=== PATIENT | male | born 1965 | race Caucasian/White ===

== ENCOUNTER 2022-09-07 22:00 | Emergency (ER) | payer OTHER, SELFPAY ==
--- NOTE | ~2022-09-07 | XR_ITS ---
EXAMINATION: XR CHEST CLINICAL INFORMATION: Chest pain COMPARISON: None available. TECHNIQUE: 2 views of the chest were obtained. FINDINGS: There is elevation of the anterior right hemidiaphragm favoring eventration. No focal consolidation is seen bilaterally. No evidence of pneumothorax, pleural effusion, or pulmonary edema. The cardiomediastinal contour is unremarkable. No acute osseous findings are seen. XR/XR chest 2V IMPRESSION: No acute cardiopulmonary findings. Eventration of the right hemidiaphragm.
--- NOTE | ~2022-09-07 | CT_ITS ---
EXAMINATION: CT head/brain wo IV con CLINICAL INFORMATION: Reason for Exam fall with head strike, on thinners COMPARISON: None. TECHNIQUE: Contiguous axial imaging was performed from the skull base to vertex without intravenous contrast. Sagittal and coronal reformatted images were obtained. This CT examination was performed using dose optimization techniques as appropriate, variously including the following: * Automated exposure control * Adjustment of mA and/or kV according to patient size (this includes techniques or standardized protocols for targeted exams where dose is matched to indication/reason for exam; i.e. extremities or head) Use of iterative reconstruction technique DLP: 605 mGy-cm FINDINGS: No acute osseous or soft tissue abnormality. The mastoid air cells and visualized portions of the paranasal sinuses are well aerated. There is no evidence of acute intracranial hemorrhage or territorial infarction. No abnormal mass effect or midline shift is seen. Weeks to white matter differentiation is well preserved. No extra-axial fluid collections are identified. No hydrocephalus. No significant volume loss. There is no abnormal attenuation within the brain parenchyma. CT/CT head/brain wo IV con IMPRESSION: No acute intracranial abnormality including hemorrhage, mass effect, hydrocephalus, or acute territorial edematous infarction.
[2022-09-07 22:11] VITALS: BP 149/86; PULSE 98; RESP 18; TEMP 2.7; TEMP 36.9; O2SAT 97; BMI 28.4
--- NOTE | 2022-09-07 22:42 | ED.GENADULT ---
[facility] - General Adult General Chief complaint: Headache Stated complaint: migraine Time Seen by Provider: 09/07/22 22:42 Source: patient and toddler lead teacher Mode of arrival: ambulatory Limitations: language barrier History of Present Illness HPI narrative: Patient is a 57-year-old male with no past medical history presenting to the emergency department with posterior headache for the past 7 months. States that headache has been constant, rates currently at 8/10. Denies headache worst at onset, denies worse headache of life. Denies dizziness or syncope. Denies history of migraines. Reports he saw his PCP regarding his headache and no imaging was ordered, no medications prescribed. States he also has mild blurred vision at times. Patient has not taken any [id number] medications for his symptoms. Denies any neck or back pain. Denies any falls or other injuries. He also reports 5/10 chest pain which he reports is intermittent also for the past several months. Denies any shortness of breath or cough. Denies any fevers. Denies abdominal pain, nausea, vomiting, diarrhea, constipation. MD complaint: Headache, chest pain Onset (ago): month(s) Location: head and chest Radiation: non-radiation Severity: severe Quality: aching Pain Consistency: constant (Headache) and intermittent (Chest pain) Relieving factors: none Exacerbating factors: none Associated symptoms: other (Occasional blurred vision) Treatments prior to arrival: none Related Data Allergies Allergy/AdvReac Type Severity Reaction Status Date / Time No Known Allergies Allergy Verified 09/07/22 22:16 Review of Systems Review of Systems: As per HPI. Yes all other systems are reviewed and are negative Constitutional: Constitutional: Reports as per HPI [facility] Social History Social History Alcohol intake: never Smoked in Last 30 Days: No Use of substances other than those prescribed or required for medical reasons: No Advance Directives: No Advance Directives Information Provided: No Physical Exam ED Vital Signs: Vital Signs - 24 hr 09/07/22 22:11 Temperature 36.9 F L Pulse Rate 98 Respiratory Rate 18 Blood Pressure 149/86 H Pulse Oximetry 97 Oxygen Delivery Method Room Air BMI result Body Mass Index 28.4 Vital signs have been reviewed and appear to be correct. Blood pressure elevated. Heart rate normal. Respiratory rate normal. Temperature normal, appears to have been documented accidentally in celcius. Oxygen saturation normal. Const General: cooperative, healthy appearing and no acute distress Orientation/consciousness: oriented to person, oriented to place, oriented to time and patient oriented x3 Limitations: no limitations HENMT Head: Yes normocephalic and Yes atraumatic Ears: external ears normal General nose exam: Normal external nose present Face and sinus: Yes face symmetric Mouth: oropharynx normal and moist mucous membranes Throat: Yes uvula midline Eyes Pupils: Equal, round and reactive pupils present Neck Neck: Yes normal visual inspection, Yes no meningeal signs and Yes supple Resp Effort & Inspection: normal respiratory effort and able to speak in complete sentences Auscultation: clear to auscultation bilaterally Cardio Rate: regular rate Rhythm: regular rhythm Heart sounds: S1 normal heart sound present and S2 normal heart sound present GI Palpation (GI): Soft to palpation and nontender Auscultation: normoactive bowel sounds General: Yes no CVA tenderness Back/Spine/Pelvis Back: no CVA tenderness Skin General skin exam: elasticity normal and turgor normal Neuro General: oriented to person, oriented to place, oriented to time, patient oriented x3, gait normal, tone normal, moves all extremities, Normal light touch and pain sensation, no meningeal signs, no focal motor deficits, CN's II-XI intact bilaterally and normal sensation to monofilament Cranial nerves: Yes Equal, round and reactive pupils present Cognition (Neuro): normal cognition Gait exam (Neuro): Normal gait present Motor exam (neuro): 5/5 motor strength present throughout, Pronator motor function not present and Motor abnormalities not present Sensory Exam: Normal double simultaneous stimulation for sensation Extrem General: Yes full ROM, Yes no pedal edema and Yes no calf tenderness Psych Mental Status: mental status grossly normal Affect: normal affect Thought process: Normal thought process present Medications Administered Discontinued Medications Generic Name Dose Route Start Last Admin Trade Name Freq PRN Reason Stop Dose Admin Diphenhydramine HCl 25 mg 09/07/22 23:06 09/07/22 23:30 Diphenhydramine Hcl 50 Mg/Ml Vial IVPUSH 09/07/22 23:07 25 mg ONCE ONE Administration Sodium Chloride 1,000 mls @ 999 mls/hr 09/07/22 23:15 09/08/22 01:26 Ns IV 09/08/22 00:15 Infused .Q1H1M MARITA Infusion Metoclopramide HCl 10 mg 09/07/22 23:06 09/07/22 23:30 Metoclopramide Hcl 10 Mg/2 Ml Vial IVPUSH 09/07/22 23:07 10 mg ONCE ONE Administration Medical Decision Making Medical Decision Making [facility] Narrative: Patient is a 57-year-old male with no past medical history presenting to the emergency department with posterior headache for the past 7 months. On exam patient is awake, A+Ox3, VS WNL, afebrile, normal neurological exam without focal deficits, LS CTA, abdomen soft and nontender. Given reported symptoms and physical exam findings, initial differential includes migraine/tension headaches, ICH, malignancy/mass, pseudotumor cerebrii, ACS, pneumonia, pneumothorax, GERD. Less likely acute glaucoma, carotid artery dissection, encephalitis/meningitis, temporal arteritis. Unlikely PE based on [place]. Labs notable for mild leukocytosis without left shift, normal PT/INR, initial troponin 16.4 so will repeat in 3 hours. HEART score is 3. Chest x-ray notable for no acute cardiopulmonary process. CT head notable for no acute abnormalities. My interpretation is in agreement with the radiologist's interpretation. Patient reports good relief of headache with medications administered in ED, states headache is 1/10. Delta trop negative, feel patient is stable for discharge home at this time. Instructed patient to follow up with PCP. Referred to cardiology as patient has had ongoing intermittent chest pain for months. All results discussed with patient and all questions answered. Return precautions discussed at bedside. Patient verbalized understanding of and agreement with plan. Differential Diagnosis Differential Diagnoses: The differential diagnosis associated with the presentation includes As per [facility]. Admission/Observation Consideration of admission/observation: Escalation of care including admission/observation considered Considered on arrival given complaint of chest pain and headache for 7 months. Lab Data [facility] Lab Attestation statement: I reviewed the patient's lab results. As per [facility]. 09/07/22 23:08 09/07/22 23:08 Labs: Lab Results 09/07/22 09/07/22 09/07/22 Range/Units 23:08 23:08 23:08 WBC 11.2 H (4.8-10.8) X10*3/uL RBC 4.87 (4.60-5.80) X10*6/uL Hgb 15.1 (14.0-18.0) g/dl Hct 44.5 (42.0-52.0) % MCV 91.4 (80.0-98.0) fL MCH 31.0 (27.0-33.0) pg MCHC 33.9 (31.0-36.0) g/dl RDW 12.9 (11.0-16.0) % Plt Count 263 (160-400) X10*3/uL MPV 9.3 L (9.4-12.4) fL Immature Gran % (Auto) 0.4 (0.0-0.4) % Neut % (Auto) 71.4 (45-73) % Lymph % (Auto) 18.0 L (20-40) % [place] % (Auto) 9.4 (2-11) % Eos % (Auto) 0.4 (0-4) % Baso % (Auto) 0.4 (0-2) % Lymph # (Auto) 2.0 (1.2-4.9) X10*3/uL [place] # (Auto) 1.1 (0.1-1.2) X10*3/uL Eos # (Auto) 0.1 (0.0-0.4) X10*3/uL Baso # (Auto) 0.1 (0.0-0.2) X10*3/uL Abs Immat Gran (auto) 0.04 H (0.00-0.03) X10*3/uL Absolute Neuts (auto) 8.0 (2.0-8.3) x10*3/uL Absolute Nucleated RBC 0.000 (0.0-0.012) X10*3/uL Nucleated RBC % (auto) 0.0 (0.0-0.2) /100WBC PT 11.9 (10.0-13.1) SEC INR 1.0 (0.9-1.1) Sodium 139 (135-145) mmol/L Potassium 4.3 (3.3-5.1) mmol/L Chloride 102 (96-108) mmol/L Carbon Dioxide 24 (22-29) mmol/L Anion Gap 17 (12-20) BUN 17 H (9-16) mg/dL Creatinine 1.32 (0.5-1.4) mg/dL Estim Creat Clear Calc 67.0 Estimated GFR 56 Random Glucose 86 (60-115) mg/dL Calcium 10.1 (8.4-10.2) mg/dL Troponin I High Sens (<3.5-35.0) ng/L 09/07/22 09/08/22 Range/Units 23:08 02:05 WBC (4.8-10.8) X10*3/uL RBC (4.60-5.80) X10*6/uL Hgb (14.0-18.0) g/dl Hct (42.0-52.0) % MCV (80.0-98.0) fL MCH (27.0-33.0) pg MCHC (31.0-36.0) g/dl RDW (11.0-16.0) % Plt Count (160-400) X10*3/uL MPV (9.4-12.4) fL Immature Gran % (Auto) (0.0-0.4) % Neut % (Auto) (45-73) % Lymph % (Auto) (20-40) % [place] % (Auto) (2-11) % Eos % (Auto) (0-4) % Baso % (Auto) (0-2) % Lymph # (Auto) (1.2-4.9) X10*3/uL [place] # (Auto) (0.1-1.2) X10*3/uL Eos # (Auto) (0.0-0.4) X10*3/uL Baso # (Auto) (0.0-0.2) X10*3/uL Abs Immat Gran (auto) (0.00-0.03) X10*3/uL Absolute Neuts (auto) (2.0-8.3) x10*3/uL Absolute Nucleated RBC (0.0-0.012) X10*3/uL Nucleated RBC % (auto) (0.0-0.2) /100WBC PT (10.0-13.1) SEC INR (0.9-1.1) Sodium (135-145) mmol/L Potassium (3.3-5.1) mmol/L Chloride (96-108) mmol/L Carbon Dioxide (22-29) mmol/L Anion Gap (12-20) BUN (9-16) mg/dL Creatinine (0.5-1.4) mg/dL Estim Creat Clear Calc Estimated GFR Random Glucose (60-115) mg/dL Calcium (8.4-10.2) mg/dL Troponin I High Sens 16.4 12.4 (<3.5-35.0) ng/L Independent Interpretation I performed an independent interpretation of an: EKG, Plain X-Ray and CT Scan Interpretation: Normal sinus rhythm, rate 89bpm, normal SD and QT intervals, no evidence of STEMI. CXR: No acute cardiopulmonary abnormalities CT head: no acute abnormalities Radiology Impression Discussion of test interpretation with radiology: I have reviewed the radiologist's reading. Radiologist Impression: XR/XR chest 2V IMPRESSION: No acute cardiopulmonary findings. Eventration of the right hemidiaphragm. CT/CT head/brain wo IV con IMPRESSION: ? No acute intracranial abnormality including hemorrhage, mass effect, hydrocephalus, or acute territorial edematous infarction. External Record Review External record reviewed: Inpatient record, Office record and Outpatient record Prescription Management I considered prescription management with: Pain Medication Scores Heart Score History: -0- slightly suspicious ECG: -0- normal Age: -1- >45 - <65 Risk factory: -0- no risk factors known Troponin: -2- > or = 3x normal limit Score: 3 Risk: 1.7% Discharge Plan Discharge Clinical Impression: Headache, Chest pain Patient Disposition: Home, Self-Care Instructions: Chest Pain (DC), Acute Headache (DC) Additional Instructions: You have been evaluated in the emergency department today for headache and chest pain. Your evaluation did not show evidence of medical conditions requiring emergent intervention at this time, and your pain improved with medication in the ED. We recommend you take 600 mg ibuprofen every 6 hours or Tylenol 650 mg every 6 hours as needed for pain. If needed, you can alternate these medications so that you take 1 medication every 3 hours. For instance, at noon take ibuprofen, then at 3:00 p.m. take Tylenol, then at 6:00 p.m. take ibuprofen. Please follow-up with your primary care provider within 2 days. 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 Return to the emergency department if you experience worsening or uncontrolled pain, vision changes, recurrent vomiting, difficulty with normal activities, abnormal behavior, difficulty walking, numbness, weakness, worsening chest pain, shortness of breath, light headedness, nausea, vomiting, or any other concerning symptoms. Referrals: [facility] [Provider Group]
--- NOTE | 2022-09-07 22:52 | ECG_ITS ---
Test Reason : HEADACHE Blood Pressure : / mmHG Vent. Rate : 089 BPM Atrial Rate : 089 BPM P-R Int : 136 ms QRS Dur : 078 ms QT Int : 384 ms P-R-T Axes : 058 019 015 degrees QTc Int : 467 ms Normal sinus rhythm Normal ECG No previous ECGs available Referred By: Diann Alexander Electronically Signed By:Jitendra Hameed
[2022-09-07 23:15] LABS: MANUAL DIFF FLAG NO
[2022-09-07 23:16] LABS: Basophils Absolute Auto 0.1 X10*3/uL (0.0-0.2); Basophils Percent Auto 0.4 % (0-2); Eosinophils Absolute Auto 0.1 X10*3/uL (0.0-0.4); Eosinophils Percent Auto 0.4 % (0-4); Hematocrit 44.5 % (42.0-52.0); Hemoglobin 15.1 g/dl (14.0-18.0); Imm Gran Abs Auto 0.04 X10*3/uL (0.00-0.03); Imm Gran Pct Auto 0.4 % (0.0-0.4); Mean Corpuscular HGB Conc 33.9 g/dl (31.0-36.0); Mean Corpuscular Volume 91.4 fL (80.0-98.0); Mean Platelet Volume 9.3 fL (9.4-12.4); Monocytes Absolute Auto 1.1 X10*3/uL (0.1-1.2); Monocytes Percent Auto 9.4 % (2-11); Neutrophils Percent Auto 71.4 % (45-73); Platelet Count 263 X10*3/uL (160-400); Red Blood Count 4.87 X10*6/uL (4.60-5.80); Red Cell Distribution Width 12.9 % (11.0-16.0); White Blood Count 11.2 X10*3/uL (4.8-10.8)
[2022-09-07 23:22] LABS: Prothrombin Time 11.9 SEC (10.0-13.1)
[2022-09-07 23:28] LABS: Anion Gap 17 (12-20); Blood Urea Nitrogen 17 mg/dL (9-16); Calcium 10.1 mg/dL (8.4-10.2); Carbon Dioxide 24 mmol/L (22-29); Chloride 102 mmol/L (96-108); Estimated Glomerular Filt Rate 56; Glucose Random 86 mg/dL (60-115); Potassium 4.3 mmol/L (3.3-5.1); Sodium 139 mmol/L (135-145)
[2022-09-07] MEDS: Metoclopramide HCl 10 MG/2 ML VIAL IVPUSH (23:30)
[2022-09-07] MEDS: 0.9 % Sodium Chloride 1,000 ML 999 ML IV (23:30)
[2022-09-07] MEDS: diphenhydrAMINE HCL 50 MG/ML VIAL 25 MG IVPUSH (23:30)
[2022-09-07 23:36] LABS: Troponin-I High Sensitivity 16.4 ng/L (<3.5-35.0)
[2022-09-08 02:32] LABS: Troponin-I High Sensitivity 12.4 ng/L (<3.5-35.0)
[2022-09-08 02:45] VITALS: BP 116/54; PULSE 85; RESP 12; TEMP 36.7
== END 2022-09-08 02:51 | disposition home or self-care (01) ==
PROVIDERS: Registered Nurse Emergency; Emergency Provider Emergency Medicine
DX: G43.909 Migraine, unspecified, not intractable, without status migrainosus (principal); R07.89 Other chest pain; H53.8 Other visual disturbances; Z79.899 Other long term (current) drug therapy
CPT/HCPCS: 36415; 70450; 71046; 80048; 84484; 85025; 85610; 93005; 96361; 96374; 96375; 99284; 99285; J1200; J2765

== ENCOUNTER → 2022-09-07 22:52 | Outpatient (BNV) | payer OTHER, SELFPAY | PROVIDERS: Emergency Provider Emergency Medicine; Visit Provider Internal Medicine Cardiovascular Disease | DX: R07.9 Chest pain, unspecified (principal) | CPT/HCPCS: 93010 ==